=== PATIENT | male | born 1945 | race Caucasian/White ===

== ENCOUNTER 2020-06-01 17:15 | Inpatient (IN) | payer MEDICARE, BC ==
[~2020-06-01] VITALS: Ht 180.3 cm; Wt 115.6 kg
[2020-06-01] MEDS ORDERED: ONDANSETRON PF 4 MG/2 ML VIAL. IVP ONE ×2 (17:30→22:30)
[2020-06-01] MEDS ORDERED: IV NORMAL SALINE 1,000ML 1,000 ML IV SCH (17:30)
[2020-06-01] MEDS ORDERED: diphenhydrAMINE 50 MG/ML VIAL ONE (18:06)
[2020-06-01] MEDS ORDERED: methylPREDNISolone SOD SUCC PF 125 MG/2 ML VIAL. ONE (18:06)
[2020-06-01 18:10] LABS: BASO # 0.1 x10^3/uL (0.0-0.2); BASO % 1 % (0-3); EOS # 0.2 x10^3/uL (0.0-0.7); EOS % 2 % (0-3); HEMATOCRIT 53.6 % (39.0-53.0); HEMOGLOBIN 17.8 g/dL (13.0-17.5); LYMPH # 1.6 x10^3/uL (1.0-4.8); LYMPH % 13 % (24-48); MEAN CORPUSCULAR HEMOGLOBIN 31 pg (25-35); MEAN CORPUSCULAR HGB CONC 33 g/dL (31-37); MEAN CORPUSCULAR VOLUME 95 fL (79-100); MONO # 1.1 x10^3/uL (0.0-1.1); MONO % 9 % (0-9); NEUT # 8.7 x10^3uL (1.8-7.7); NEUT % 74 % (31-73); PLATELET COUNT 229 x10^3/uL (140-400); RED BLOOD COUNT 5.67 x10^6/uL (4.30-5.70); RED CELL DISTRIBUTION WIDTH 13.8 % (11.5-14.5); WHITE BLOOD COUNT 11.7 x10^3/uL (4.0-11.0)
[2020-06-01] MEDS ORDERED: IOHEXOL 300 MG/ML 75 ML VIAL. IV ONE (18:15)
[2020-06-01] MEDS ORDERED: methylPREDNISolone SOD SUCC PF 125 MG/2 ML VIAL. IV ONE (18:15)
[2020-06-01] MEDS ORDERED: diphenhydrAMINE 50 MG/ML VIAL IVP ONE (18:15)
[2020-06-01 18:19] LABS: CALCIUM 9.6 mg/dL (8.5-10.1); CREATININE 1.1 mg/dL (0.7-1.3); GFR 65.3
--- NOTE | 2020-06-01 18:25 | PHYS DOC ---
Past History Past Medical History: High Cholesterol Additional Past Medical Histor: AFIB, ABLATION (NELIA BULLOCK MD) Past Surgical History: Other Additional Past Surgical Histo: CARDIAC STENTS, ABLATION (NELIA BULLOCK MD) Alcohol Use: None (NELIA BULLOCK MD) Adult General Chief Complaint Chief Complaint: CHEST PAIN HPI HPI Patient is a 75-year-old male with complicated past medical history which includes hypertension and diabetes presented emergency department for new onset of abdominal pain. Patient states that earlier this morning he had sudden onset of spontaneous midepigastric abdominal pain which radiated straight into the middle of his back. Has been associated mild nausea but denies any numbness, weakness, fever or chills. Denies any associated chest pain. Denies any worsening with food or changes in bowel or bladder habits. Patient noted to be hypertensive on arrival states he did take his blood pressure medication before arriving today. (NELIA BULLOCK MD) Review of Systems Review of Systems Constitutional: Denies fever or chills [] Eyes: Denies change in visual acuity, redness, or eye pain [] HENT: Denies nasal congestion or sore throat [] Respiratory: Denies cough or shortness of breath [] Cardiovascular: No additional information not addressed in HPI [] GI: Denies abdominal pain, nausea, vomiting, bloody stools or diarrhea [] : Denies dysuria or hematuria [] Musculoskeletal: Denies back pain or joint pain [] Integument: Denies rash or skin lesions [] Neurologic: Denies headache, focal weakness or sensory changes [] Endocrine: Denies polyuria or polydipsia [] All other systems were reviewed and found to be within normal limits, except as documented in this note. (NELIA BULLOCK MD) Current Medications Current Medications Current Medications Medications (Trade) Dose Ordered Sig/Payal Start Time Stop Time Status Last Admin Dose Admin Diphenhydramine HCl (Benadryl) 50 mg 1X ONCE 06/01/20 18:15 06/01/20 18:16 DC Fentanyl Citrate (Fentanyl 2ml Vial) 25 mcg 1X ONCE 06/01/20 17:30 06/01/20 18:00 DC Iohexol (Omnipaque 300 Mg/ml) 75 ml 1X ONCE 06/01/20 18:15 06/01/20 18:16 DC Methylprednisolone Sodium Succinate (SOLU-Medrol 125MG VIAL) 125 mg STK-MED ONCE 06/01/20 18:06 06/01/20 18:06 DC Ondansetron HCl (Zofran) 4 mg 1X ONCE 06/01/20 17:30 06/01/20 18:00 DC Sodium Chloride 1,000 ml @ 100 mls/hr Q10H 06/01/20 17:30 06/02/20 03:29 (NELIA BULLOCK MD) Allergies Allergies Allergies Coded Allergies Type Severity Reaction Last Updated Verified Iodine and Iodide Containing Produc Allergy Intermediate RASH/HIVES 06/01/20 Yes Penicillins Allergy Mild RASH 06/01/20 Yes (NELIA BULLOCK MD) Physical Exam Physical Exam Constitutional: Well developed, well nourished, no acute distress, non-toxic appearance. [] HENT: Normocephalic, atraumatic, bilateral external ears normal, oropharynx moist, no oral exudates, nose normal. [] Eyes: PERRLA, EOMI, conjunctiva normal, no discharge. [] Neck: Normal range of motion, no tenderness, supple, no stridor. [] Cardiovascular:Heart rate regular rhythm, no murmur [] Lungs & Thorax: Bilateral breath sounds clear to auscultation [] Abdomen: Bowel sounds normal, soft, no tenderness, no masses, no pulsatile masses. [] Skin: Warm, dry, no erythema, no rash. [] Back: No tenderness, no CVA tenderness. [] Extremities: No tenderness, no cyanosis, no clubbing, ROM intact, no edema. [] Neurologic: Alert and oriented X 3, normal motor function, normal sensory functi on, no focal deficits noted. [] Psychologic: Affect normal, judgement normal, mood normal. [] (NELIA BULLOCK MD) Current Patient Data Vital Signs Vital Signs Date Time Temp Pulse Resp B/P (MAP) Pulse Ox O2 Delivery O2 Flow Rate FiO2 06/01/20 17:41 98.1 79 18 171/100 (123) 97 Room Air (NELIA BULLOCK MD) EKG EKG [] (NELIA BULLOCK MD) Radiology/Procedures Radiology/Procedures [] (NELIA BULLOCK MD) Radiology/Procedures PROCEDURE: CT ABD PELV W/ IV CONTRST ONLY Exam: CT of abdomen and pelvis with contrast INDICATION: Epigastric pain TECHNIQUE: Sequential axial images through the abdomen and pelvis obtained following the administration of 73 mL of Isovue-370 IV contrast. Sagittal and coronal reformatted images were reconstructed from the axial data and reviewed. Comparisons: None FINDINGS: Heart size is normal. No pericardial effusion. Strandy opacities at the dependent portion lungs likely representing atelectasis. No pleural effusion. Liver, spleen, gallbladder and adrenals are unremarkable. Mild haziness at the surrounding the pancreas. No peripancreatic fluid or ductal dilatation. Kidneys demonstrate symmetric enhancement. No perinephric inflammation or hydr onephrosis. No renal or ureteral calculi are identified. Bladder is partially distended and appears thin-walled. Prostate is not enlarged. Large and small bowel are unremarkable. Appendix is normal. No free intra- abdominal air or fluid. No obstruction. Abdominal aorta has a normal course and caliber. Abdominal vasculature is patent. No enlarged intra-abdominal lymph nodes are identified. No suspicious osseous lesions or acute fractures. IMPRESSION: Haziness surrounding the pancreas concerning for acute pancreatitis. No peripancreatic fluid collection. Correlate with appropriate laboratory enzymes. (CHRIS ESPANA DO) Heart Score C/O Chest Pain: No Risk Factors: Risk Factors: DM, Current or recent (<one month) smoker, HTN, HLP, family history of CAD, obesity. Risk Scores: Risk Factors: DM, Current or recent (<one month) smoker, HTN, HLP, family history of CAD, obesity. (NELIA BULLOCK MD) Course & Med Decision Making Course & Med Decision Making Pertinent Labs and Imaging studies reviewed. (See chart for details) 75-year-old male presents emergency department for new onset of midepigastric abdominal pain radiating to the back which is raise concern major issues which does include aortic aneurysm, aortic dissection, pancreatitis, cholecystitis. Patient work-up with broad laboratory work-up as well as a CT scan of the abdomen pelvis with IV contrast. (NELIA BULLOCK MD) Course & Med Decision Making I assumed care of patient after comprehensive signout by off going physician. I reviewed entirety of medical work-up thus far. I personally saw patient and repeated certain aspects of history and physical exam. HPI and CT abdomen pelvis consistent and concerning for pancreatitis. Patient did not respond adequately to ER intervention that included IV fluid rehydration and pain control. He will require admission. I contacted Dr. Mo, hospitalist at [facility] and he agreed need for admission and accepted patient under his care I updated patient on proposed plan of care that included hospital admission for continued IV fluid rehydration, n.p.o. status and pain management until adequate resolution of pancreatitis symptoms. He was amenable. All questions and concerns addressed prior to admission (CHRIS ESPANA DO) Dragon Disclaimer Dragon Disclaimer This electronic medical record was generated, in whole or in part, using a voice recognition dictation system. (NELIA BULLOCK MD) Departure Departure: Impression: Primary Impression: Acute pancreatitis Disposition: 09 ADMITTED INPT THIS HOSP Admitting Physician: Gala Mo (CHRIS ESPANA DO) Condition: STABLE Referrals: GALA PARIS MD (PCP) NELIA BULLOCK MD Jun 01, 2020 18:25 CHRIS ESPANA DO Jun 02, 2020 05:06
[2020-06-01 18:26] LABS: ALBUMIN 3.6 g/dL (3.4-5.0); ALBUMIN/GLOBULIN RATIO 0.8 (1.0-1.7); TOTAL BILIRUBIN 0.6 mg/dL (0.2-1.0); TOTAL PROTEIN 8.3 g/dL (6.4-8.2)
--- NOTE | 2020-06-01 18:38 | RAD ---
Exam: CT of abdomen and pelvis with contrast INDICATION: Epigastric pain TECHNIQUE: Sequential axial images through the abdomen and pelvis obtained following the administrati on of 73 mL of Isovue-370 IV contrast. Sagittal and coronal reformatted images were reconstructed fro m the axial data and reviewed. Comparisons: None FINDINGS: Heart size is normal. No pericardial effusion. Strandy opacities at the dependent portion lungs likel y representing atelectasis. No pleural effusion. Liver, spleen, gallbladder and adrenals are unremarkable. Mild haziness at the surrounding the pancre as. No peripancreatic fluid or ductal dilatation. Kidneys demonstrate symmetric enhancement. No perinephric inflammation or hydronephrosis. No renal or ureteral calculi are identified. Bladder is partially distended and appears thin-walled. Prostate is not enlarged. Large and small bowel are unremarkable. Appendix is normal. No free intra-abdominal air or fluid. No obstruction. Abdominal aorta has a normal course and caliber. Abdominal vasculature is patent. No enlarged intra-abdominal lymph nodes are identified. No suspicious osseous lesions or acute fractures. IMPRESSION: Haziness surrounding the pancreas concerning for acute pancreatitis. No peripancreatic fluid collecti on. Correlate with appropriate laboratory enzymes. Exposure: One or more of the following in the visualized dose reduction techniques were utilized for this examination: 1. Automated exposure control 2. Adjustment of the MA and/or KV according to patient size 3. Use of iterative of reconstructive technique Electronically signed by: Jeremiah Cheung MD (06/01/2020 6:35 PM) [facility]
--- NOTE | 2020-06-01 18:41 | RAD ---
INDICATION: Reason: EPIGASTRIC PAIN, CHEST PAIN / Spl. Instructions: / History: COMPARISON: None. IMPRESSION: 4 views of the chest and abdomen. Cardiomediastinal silhouette is upper limits of normal. Stimulator lead projecting over thoracic spine. No definite focal airspace consolidation. Degenerative changes t he spine. Air scattered throughout the large and small bowel in a nonspecific but not grossly obstruc tive pattern. Electronically signed by: Nick Mcclellan MD (06/01/2020 6:39 PM) [id number]
[2020-06-01] MEDS ORDERED: MORPHINE SULFATE 4 MG/ML DISP.SYRIN. IVP PRN (19:15)
[2020-06-01 22:00] VITALS: BP 149/96
[2020-06-01] MEDS ORDERED: TAMS0.4C97 PO (22:21)
[2020-06-01] MEDS ORDERED: BUPR200T3 PO (22:21)
[2020-06-01] MEDS ORDERED: SODI3.5O3 OP (22:21)
[2020-06-01] MEDS ORDERED: BIMA2.5D OP (22:21)
[2020-06-01] MEDS ORDERED: MONT10TA20 PO (22:21)
[2020-06-01] MEDS ORDERED: TEST60GE2 TP (22:21)
[2020-06-01] MEDS ORDERED: TRAM1TAB4 PO (22:21)
[2020-06-01] MEDS ORDERED: LEVO5DRO4 OP (22:21)
[2020-06-01] MEDS ORDERED: LISI10TA16 PO (22:21)
[2020-06-01] MEDS: IV NORMAL SALINE 1,000ML 1,000 ML IV SCH (22:26)
[2020-06-02 04:50] LABS: AMPHETAMINE/METHAMPHETAMINE NEG (NEG); BARBITURATES NEG (NEG); BENZODIAZEPINES NEG (NEG); CANNABINOIDS NEG (NEG); COCAINE NEG (NEG); METHADONE NEG (NEG); OPIATES NEG (NEG); PHENCYCLIDINE NEG (NEG)
[2020-06-02 04:55] LABS: BACTERIA,URINE 0 /HPF (0-FEW); BILIRUBIN,URINE NEG (NEG); CLARITY,URINE CLEAR; COLOR,URINE YELLOW; GLUCOSE,URINE NEG (NEG); NITRITE,URINE NEG (NEG); RBC,URINE 0 /HPF (0-2); UROBILINOGEN,URINE 0.2 mg/dL (0.2 mg/dL); WBC,URINE OCC /HPF (0-4)
[2020-06-02 05:43] VITALS: BP 133/76
[2020-06-02] MEDS: IV NORMAL SALINE 1,000ML 1,000 ML IV SCH ×2 (06:26→15:08)
[2020-06-02 10:42] VITALS: BP 162/82
[2020-06-02] MEDS ORDERED: KETOROLAC 30 MG/ML VIAL. IVP ONE (15:00)
[2020-06-02 15:15] LABS: CREATININE 1.2 mg/dL (0.7-1.3); POTASSIUM 4.4 mmol/L (3.5-5.1)
[2020-06-02 15:21] LABS: ALBUMIN 3.2 g/dL (3.4-5.0); ALBUMIN/GLOBULIN RATIO 0.7 (1.0-1.7); TOTAL BILIRUBIN 0.5 mg/dL (0.2-1.0); TOTAL PROTEIN 7.6 g/dL (6.4-8.2)
[2020-06-02 15:23] LABS: BASO % 0 % (0-3); EOS % 0 % (0-3); HEMATOCRIT 53.2 % (39.0-53.0); HEMOGLOBIN 17.4 g/dL (13.0-17.5); LYMPH # 1.4 x10^3/uL (1.0-4.8); LYMPH % 11 % (24-48); MEAN CORPUSCULAR HEMOGLOBIN 32 pg (25-35); MEAN CORPUSCULAR HGB CONC 33 g/dL (31-37); MEAN CORPUSCULAR VOLUME 98 fL (79-100); MONO # 0.9 x10^3/uL (0.0-1.1); MONO % 7 % (0-9); NEUT # 10.1 x10^3uL (1.8-7.7); NEUT % 81 % (31-73); PLATELET COUNT 204 x10^3/uL (140-400); RED BLOOD COUNT 5.45 x10^6/uL (4.30-5.70); RED CELL DISTRIBUTION WIDTH 14.2 % (11.5-14.5); WHITE BLOOD COUNT 12.5 x10^3/uL (4.0-11.0)
--- NOTE | 2020-06-02 15:25 | HP ---
ADMIT DATE: HISTORY OF PRESENT ILLNESS: The patient is a 75-year-old male patient who was sent to the Emergency Room by his primary care physician on account of abdominal pain that was mostly in the epigastric area. In his description he said that Sunday night, he started having back pain that radiates forward to the epigastric area that continued when he woke up, he continued to have the pain and he went to a chiropractor who advised him to go to his primary care physician. He was seen by ____ and instead of ordering lab work he recommended that the patient comes to the Emergency Room for further evaluation and treatment. He was seen and has had extensive evaluation including lab work and imaging studies. His white cell count was slightly elevated at 11.7, his chemistry was mostly unremarkable. His urinalysis was unremarkable and her toxic screen was negative. He did have a KUB, acute abdomen series, which basically showed air scattered throughout the large and small bowel in a nonspecific, but not grossly obstructive pattern. He has a CT scan of the abdomen and pelvis, which basically showed that the patient has haziness surrounding the pancreas concerning for acute pancreatitis. No peripancreatic fluid collection correlate with appropriate laboratory enzymes. The patient was admitted with acute pancreatitis, was kept n.p.o., continued IV fluid and IV pain medication. PAST MEDICAL HISTORY: Significant for hypertension, hyperlipidemia, coronary artery disease, status post PCI with stent deployment x 3. He has also multiple episodes of TIA, atrial fibrillation, status post ablation, benign prostatic hypertrophy, and generalized osteoarthritis. PAST SURGICAL HISTORY: Significant for PCI and stent deployment, the patient has pilonidal cyst removed. He has bilateral cataract extraction, tonsillectomy, L4-L5 laminectomy. He apparently has also nerve stimulator placement. ALLERGIES: HE IS ALLERGIC TO PENICILLIN AND IODINE CONTAINING PRODUCT. MEDICATIONS: He is currently on following medications, is normally on tamsulosin 0.4 mg at bedtime, lisinopril 10 mg once a day, tramadol/acetaminophen 1 tablet twice a day, Wellbutrin 200 mg twice a day. He is on Singulair 10 mg at bedtime. He is on levobunolol hydrochloride 5 mL drops 1 drop to both eyes twice a day, bimatoprost 1 drop to both eyes at noon. He is on sodium chloride 3.5 gram ointment 1 application at noon and he is on testosterone 60 gram gel 10 mg topically daily. FAMILY HISTORY: He has one sister still alive and has knee and hip replacement. One sister at age 19 because of a tumor and 2 sisters at infancy. His father at the age of 85 because of colon cancer. Mother of metastatic breast cancer. SOCIAL HISTORY: He is , has 2 sons. He never smoked. Drinks alcohol very occasionally. 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 REVIEW OF SYSTEMS: As per history of present illness. PHYSICAL EXAMINATION: GENERAL: On arrival to the Emergency Room, the patient looked well and was clearly in no apparent respiratory distress. No pallor, jaundice, cyanosis or thyromegaly. No jugular venous distension. No limb edema. VITAL SIGNS: His heart rate was 79, blood pressure was 171/100, temperature was 98.1, respiratory rate was 18 and oxygen saturation was 97%. HEAD, EYES, EARS, NOSE AND THROAT: Showed normocephalic, atraumatic. NECK: Supple. HEART: Showed normal first and second heart sounds. No gallop, rub or murmur. CHEST: Clear to auscultation. No crepitation or rhonchi. ABDOMEN: Distended, soft, nontender. No guarding or rigidity. No organomegaly. All hernial orifice intact. Bowel sounds normal. NEUROLOGIC: Grossly intact. LABORATORY DATA: His lab work on admission showed a white cell count of 11,700, hemoglobin 17.8, hematocrit 54, MCV 95, and platelet count of 229,000 with normal manual differential. His prothrombin time, INR and aPTT are normal. His chemistry showed a serum sodium 139, potassium 5, chloride 102, bicarbonate 31, anion gap of 6, BUN 26, creatinine was 1.1. Estimated GFR was 65 mL per minute. His glucose was 98. Calcium was 9.6. Total bilirubin, AST, ALT, alkaline phosphatase were normal. Total protein was 8.3, albumin was 3.6 and serum lipase was 120. Urinalysis was essentially unremarkable and toxic screen was negative. His acute abdomen series showed that the cardiomediastinal silhouette is upper limit of normal. Stimulator leads projecting over the thoracic spine. No definite focal airspace consolidation. There are degenerative changes of the spine. Air scattered throughout the large and small bowel in a nonspecific, but not grossly obstructive pattern. The CT scan of the abdomen and pelvis showed the heart size is normal, no pericardial effusion, strandy opacities at the dependent portion of both lungs likely representing atelectasis, no pleural effusion. Liver, spleen, gallbladder, and adrenals are unremarkable. Mild haziness surrounding the pancreas, no peripancreatic fluid collection, no ductal dilatation. Kidneys demonstrate symmetric enhancement. No perinephric inflammation or hydronephrosis, no renal or ureteral calculi identified. The bladder is partially distended and appears thin walled. Prostate is not enlarged. Large and small bowel are unremarkable. Appendix is normal and no free intraabdominal air or fluid, no obstruction. Abdominal aorta has a normal course and caliber. Abdominal vasculature is patent. No enlarged intraabdominal lymph nodes identified. No suspicious osseous lesion or acute fractures. The patient was admitted with acute pancreatitis, kept n.p.o., continue with IV fluid and IV pain medication, antiemetic. We will repeat all his lab work again and if pain subsides we will start him on clear liquid diet and advance as tolerated. RHYS SOLOMON MD DR: MECHE/janey JOB#: [id number] / [id number]
[2020-06-02 16:05] VITALS: BP 149/75
--- NOTE | 2020-06-02 16:11 | RAD ---
Exam: Ultrasound abdomen limited Indication: Acute pancreatitis Technique: Real-time grayscale and color Doppler images of the right upper quadrant were obtained by the department screw machine adjuster automatic. Comparisons: CT 06/01/2020 FINDINGS: Evaluation is limited secondary to overlying bowel gas. Increased echogenicity of liver. Hepatopedal flow noted in the portal vein. Gallbladder is partially distended and appears thin-walled. No pericholecystic fluid or wall thickeni ng. Common bile duct measures 5 mm in diameter. Kidney measures 12.2 cm in length. No hydronephrosis. Visualized portions of the aorta and IVC are unremarkable. IMPRESSION: 1. Increased echogenicity liver, likely related to diffuse hepatic steatosis. 2. No right-sided hydronephrosis. 3. No sonographic evidence for acute cholecystitis. No biliary ductal dilatation. Electronically signed by: Jeremiah Cheung MD (06/02/2020 4:09 PM) [facility]
[2020-06-02] MEDS ORDERED: ACETAMINOPHEN 325 MG TABLET PO PRN (17:00)
[2020-06-02] MEDS ORDERED: traMADol 50 MG TABLET PO PRN (17:00)
--- NOTE | 2020-06-02 17:41 | PN ---
DATE: 06/02/2020 SUBJECTIVE: The patient is resting, slightly propped up in bed, in no apparent respiratory distress. Questioning him, he denied any pain. His lab work on admission showed serum lipase was only 120. The CT scan showed some haziness around the pancreas without any peripancreatic fluid. PHYSICAL EXAMINATION: GENERAL: When I examined him this afternoon, he looked well and was clearly in no apparent respiratory distress. No pallor, jaundice, cyanosis or thyromegaly. No jugular venous distention. No limb edema. VITAL SIGNS: His heart rate was 82, blood pressure was 162/82, temperature was 97.9, respiratory rate was 16, and oxygen saturation was 96% on room air. HEENT: Showed normocephalic, atraumatic. NECK: Supple. HEART: Showed normal first and second heart sounds. No gallop, rub, or murmur. CHEST: Clear to auscultation. No crepitation or rhonchi. ABDOMEN: Distended, soft, nontender. No guarding or rigidity. NEUROLOGIC: He was grossly intact. LABORATORY DATA: This afternoon showed a serum sodium 142, potassium 4.4, chloride 105, bicarbonate 31, anion gap of 6, BUN 22, creatinine 1.2, estimated GFR was 59 mL per minute, glucose 95, calcium was 9. Total bilirubin, AST, ALT, alkaline phosphatase were normal. Total protein 7.6, albumin was 3.2 and serum lipase was only 69. His white cell count was 12,500, hemoglobin 17, hematocrit 53, MCV 98 and platelet count 204,000. ASSESSMENT: Abdominal pain. Lipase is normal. The CT scan showed some haziness around the pancreas. PLAN: I have arranged for him to have abdominal ultrasound. We will start him on a clear liquid diet and advance as tolerated. We will repeat his labs again tomorrow and if they remain stable and there is no evidence of cholelithiasis or acute cholecystitis we will discharge him home. RHYS SOLOMON MD DR: MECHE/janey JOB#: [id number] / [id number]
[2020-06-02 19:35] VITALS: BP 138/76
[2020-06-02] MEDS: buPROPion SR 100 MG TABLET.SA. PO SCH (20:47)
[2020-06-02] MEDS ORDERED: SODIUM CHLORIDE 5% OPHTH OINTMENT 3.5GM TUBE. OS SCH (21:00)
[2020-06-02] MEDS ORDERED: LATANOPROST 0.005% OPHTH SOLUTION 2.5ML BOTTLE. OU SCH (21:00)
[2020-06-02] MEDS ORDERED: TAMSULOSIN 0.4 MG CAP.ER.24H. PO SCH (21:00)
[2020-06-02] MEDS ORDERED: MONTELUKAST 10 MG TABLET. PO SCH (21:00)
[2020-06-02] MEDS ORDERED: LEVOBUNOLOL 0.5% OU SCH (21:00)
[2020-06-02 22:15] VITALS: BP 134/82
[2020-06-03 05:44] VITALS: BP 114/64
[2020-06-03 06:48] LABS: HEMATOCRIT 46.6 % (39.0-53.0); HEMOGLOBIN 15.6 g/dL (13.0-17.5); RED BLOOD COUNT 4.86 x10^6/uL (4.30-5.70); RED CELL DISTRIBUTION WIDTH 14.1 % (11.5-14.5); WHITE BLOOD COUNT 8.4 x10^3/uL (4.0-11.0)
[2020-06-03 06:50] LABS: ALBUMIN 2.8 g/dL (3.4-5.0); ALBUMIN/GLOBULIN RATIO 0.8 (1.0-1.7); CALCIUM 8.1 mg/dL (8.5-10.1); GFR 72.8; TOTAL BILIRUBIN 0.5 mg/dL (0.2-1.0); TOTAL PROTEIN 6.3 g/dL (6.4-8.2)
--- NOTE | 2020-06-03 07:55 | EKG ---
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
[2020-06-03] MEDS: buPROPion SR 100 MG TABLET.SA. PO SCH (08:26)
--- NOTE | 2020-06-03 08:27 | EKG ---
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
[2020-06-03] MEDS ORDERED: LISINOPRIL 10 MG TABLET PO SCH (09:00)
[2020-06-03] MEDS ORDERED: TESTOSTERONE 10 MG TP SCH (09:00)
[2020-06-03] MEDS ORDERED: LEVOBUNOLOL 0.5% OS SCH (09:00)
[2020-06-03 10:56] VITALS: BP 124/69
[2020-06-03] MEDS ORDERED: LATANOPROST 0.005% OPHTH SOLUTION 2.5ML BOTTLE. OU SCH (12:00)
[2020-06-03] MEDS ORDERED: SODIUM CHLORIDE 5% OPHTH OINTMENT 3.5GM TUBE. OU SCH (12:00)
--- NOTE | 2020-06-03 15:28 | DS ---
DATE OF DISCHARGE: 06/03/2020 HOSPITAL COURSE: Patient is a 75-year-old male patient who presented to the Emergency Room from his primary care physician's office with back pain radiating to the epigastric area. Was investigated, a CT scan showed haziness around the pancreas, but his serum lipase remained consistently well within normal range. In fact, initially his serum lipase was 120, came down to 69 and today it was 75. There is no evidence of any derangement of liver enzymes. We did check his abdominal ultrasound, which showed there is increased echogenicity of the liver, likely related to diffuse hepatic steatosis. No right sided hydronephrosis, no sonographic evidence for acute cholecystitis and no biliary ductal dilatation. The patient is eating and drinking, tolerating his diet, has no pain and a decision was made to discharge him home. PHYSICAL EXAMINATION: GENERAL: When I saw him today afternoon, he looked well and was clearly in no apparent respiratory distress. No pallor, jaundice, cyanosis or thyromegaly. No jugular venous distension. No lower limb edema. VITAL SIGNS: His heart rate was 66, blood pressure was 124/69, temperature was 97.3, respiratory rate was 16, and oxygen saturation was 93% on room air. HEAD, EYES, EARS, NOSE AND THROAT: Showed normocephalic, atraumatic. NECK: Supple. HEART: Showed normal first and second heart sounds. No gallop, rub or murmur. CHEST: Clear to auscultation. No crepitation or rhonchi. ABDOMEN: Distended, soft, nontender. NEUROLOGIC: He was grossly intact. LABORATORY DATA: This morning showed a serum sodium 142, potassium 4, chloride 108, bicarbonate 27, anion gap of 7, BUN 22, creatinine 1, estimated GFR was 72 mL per minute. His glucose was 85, calcium was 8.1. Total bilirubin, AST, ALT, alkaline phosphatase were normal. Total protein 6.3, albumin was 2.8 and lipase was 75. His white cell count is down to 8400, hemoglobin 15, hematocrit 46, MCV 96, and platelet count of 180,000. DISCHARGE MEDICATIONS: The patient was discharged home to continue on [place] 1 drop to both eyes at noon, Wellbutrin 200 mg twice a day, ____ 1 drop to both eyes twice a day, lisinopril 10 mg once a day, Singulair 10 mg at bedtime, sodium chloride 1 application to both eyes at noon, tamsulosin for Flomax 0.4 mg at bedtime, testosterone 60 grams gel apply 10 mg topically daily and tramadol/acetaminophen 37.5/325 one tablet twice a day. FINAL DISCHARGE DIAGNOSES: 1. Acute pancreatitis on the CT scan. His serum lipase has always been normal. We repeated that 3 times. He has no evidence of any cholelithiasis or acute cholecystitis. 2. Hypertension. 3. Hyperlipidemia. 4. Coronary artery disease, status post PCI and stent deployment x 3. 5. Multiple transient ischemic attacks. 6. Atrial fibrillation, status post ablation. 7. Benign prostatic hypertrophy. 8. Generalized osteoarthritis. RHYS SOLOMON MD DR: MECHE/janey JOB#: [id number] / [id number]
== END 2020-06-03 14:52 | disposition home or self-care (01) | DRG 440 ==
LOC: ER 17:15 → 1 SOUTH 21:28
PROVIDERS: ADMIT Hospitalist; ATTEND Hospitalist
DX: K85.90 Acute pancreatitis without necrosis or infection, unspecified (principal); I48.91 Unspecified atrial fibrillation; E78.00 Pure hypercholesterolemia, unspecified; M15.9 Polyosteoarthritis, unspecified; E78.5 Hyperlipidemia, unspecified; I10 Essential (primary) hypertension; I25.10 Atherosclerotic heart disease of native coronary artery without angina pectoris; E11.9 Type 2 diabetes mellitus without complications; E66.9 Obesity, unspecified; N40.0 Benign prostatic hyperplasia without lower urinary tract symptoms; Z86.73 Personal history of transient ischemic attack (TIA), and cerebral infarction without residual deficits; Z98.41 Cataract extraction status, right eye; Z98.42 Cataract extraction status, left eye; Z95.5 Presence of coronary angioplasty implant and graft; Z88.0 Allergy status to penicillin; Z91.041 Radiographic dye allergy status; Z90.89 Acquired absence of other organs; Z80.0 Family history of malignant neoplasm of digestive organs; Z68.35 Body mass index [BMI] 35.0-35.9, adult
CPT/HCPCS: 36415; 74022; 74177; 76705; 80053; 80307; 81001; 82550; 83605; 83690; 84484; 85025; 85027; 85610; 85730; 86850; 86900; 86901; 93005; 96374; 96375; J1200; J1885; J2405; J2930; J3010; Q9967; 99285-25; J7030